=== PATIENT | male | born 1960 | race African-American/Black ===

== ENCOUNTER 2017-04-23 19:35 | Emergency (ER) | payer SELFPAY ==
[~2017-04-23] VITALS: Ht 172.7 cm; Wt 73.0 kg
[2017-04-23 21:20] LABS: *AMPHETAMINES SCREEN URINE NEGATIVE (NEGATIVE); *BARBITURATES SCREEN URINE NEGATIVE (NEGATIVE); *BENZODIAZEPINES SCREEN URINE NEGATIVE (NEGATIVE); *COCAINE SCREEN URINE NEGATIVE (NEGATIVE); CANNABINOID URINE SCREEN NEGATIVE (NEGATIVE); METHADONE URINE SCREEN NEGATIVE (NEGATIVE); OPIATES URINE SCREEN NEGATIVE (NEGATIVE); PHENCYCLIDINE URINE SCREEN NEGATIVE (NEGATIVE)
[2017-04-23 21:43] LABS: BASOPHILS % 0.7 % (0.0-2.0); EOSINOPHILS % 2.3 % (0.0-5.0); HEMATOCRIT. 45.5 % (42.0-52.0); HEMOGLOBIN. 15.2 g/dL (14.0-18.0); LYMPHOCYTES % 28.1 % (20.0-50.0); MEAN CORPUSCULAR HEMOGLOBIN 33.7 pg (28.0-32.0); MEAN CORPUSCULAR VOLUME 101.3 fL (80.0-94.0); MONOCYTES % 8.4 % (2.0-8.0); NEUTROPHILS % 60.5 % (40.0-76.0); PLATELET 178 x1000/uL (130-400); RED BLOOD CELL COUNT 4.49 mill/uL (4.7-6.1); RED CELL DISTRIBUTION WIDTH 14.7 % (11.6-14.6)
[2017-04-23 21:51] LABS: CHLORIDE 112 mEq/L (98-107)
[2017-04-23 21:57] LABS: CARBON DIOXIDE 23 mEq/L (21-32); ETHANOL BLOOD 212 mg/dL
[2017-04-23] MEDS ORDERED: IBUPROFEN 600MG TABLET PO ONE (22:15)
[2017-04-23] MEDS ORDERED: KETOROLAC 60MG/2ML VIAL IM ONE (23:00)
[2017-04-23 23:02] VITALS: BP 115/63
== END 2017-04-23 23:15 | disposition home or self-care (01) ==
LOC: ER 19:40
DX: M54.5 Low back pain (principal); G89.29 Other chronic pain; M79.662 Pain in left lower leg; M79.661 Pain in right lower leg; M25.512 Pain in left shoulder; S09.90XA Unspecified injury of head, initial encounter; V49.49XA Driver injured in collision with other motor vehicles in traffic accident, initial encounter; F10.10 Alcohol abuse, uncomplicated; Y90.7 Blood alcohol level of 200-239 mg/100 ml; Y93.89 Activity, other specified; Y92.410 Unspecified street and highway as the place of occurrence of the external cause; Z90.49 Acquired absence of other specified parts of digestive tract; F17.210 Nicotine dependence, cigarettes, uncomplicated; Z98.890 Other specified postprocedural states; Z87.828 Personal history of other (healed) physical injury and trauma; R03.0 Elevated blood-pressure reading, without diagnosis of hypertension
CPT/HCPCS: 36415; 80048; 80305; 85025; 96372; 99284; G0482; J1885; Z7610